=== PATIENT | male | born 1975 | race Caucasian/White ===

== ENCOUNTER 2020-12-28 05:10 | Emergency (ER) | payer OTHER ==
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
[2020-12-28] MEDS ORDERED: Morphine 2 MG/ML SYRINGE IVPUSH ONE (05:31)
[2020-12-28] MEDS ORDERED: Iopamidol 755 Mg/ML 100 ML Bottle IV ONE (05:42)
[2020-12-28] MEDS: Sodium Chloride 0.9% 10 ML Syringe FLUSH PRN ×3 (05:48→07:17)
[2020-12-28] MEDS ORDERED: Ketorolac 30 MG/ML SDV IVPUSH ONE (07:03)
== END 2020-12-28 08:25 | disposition home or self-care (01) ==
LOC: FB.ED 05:10
DX: S16.1XXA Strain of muscle, fascia and tendon at neck level, initial encounter (principal); S39.012A Strain of muscle, fascia and tendon of lower back, initial encounter; F11.20 Opioid dependence, uncomplicated; Z79.82 Long term (current) use of aspirin; Z79.899 Other long term (current) drug therapy; V49.9XXA Car occupant (driver) (passenger) injured in unspecified traffic accident, initial encounter
CPT/HCPCS: 36415; 70450; 71260; 72125; 72128; 72131; 74177; 80053; 80305-QW; 80307; 81001; 82150; 83690; 85025; 85610; 85730; 96374; 96375; 99284; 99285-25; J1885; J2270; Q9967

== ENCOUNTER 2021-11-28 21:30 | Emergency (ER) | payer OTHER ==
[2021-11-28] MEDS ORDERED: Ketorolac 30 MG/ML SDV IM ONE (21:55)
== END 2021-11-28 23:25 | disposition home or self-care (01) ==
LOC: FB.ED 21:30
DX: S83.92XA Sprain of unspecified site of left knee, initial encounter (principal); M70.42 Prepatellar bursitis, left knee; I10 Essential (primary) hypertension; F17.200 Nicotine dependence, unspecified, uncomplicated; Z79.899 Other long term (current) drug therapy; Z79.82 Long term (current) use of aspirin
CPT/HCPCS: 36415; 73562-LT; 85025; 86140; 96372; 99283-25; J1885

== ENCOUNTER 2023-02-26 16:24 | Emergency (ER) | payer OTHER ==
[2023-02-26] MEDS ORDERED: Ondansetron 4 MG Tab.DIS PO ONE (17:01)
[2023-02-26] MEDS ORDERED: HYDROmorphone 2 MG/ML SDV IM ONE (17:01)
== END 2023-02-26 17:53 ==
LOC: FB.ED 16:24
DX: M79.89 Other specified soft tissue disorders (principal); M79.605 Pain in left leg; I10 Essential (primary) hypertension; Z91.09 Other allergy status, other than to drugs and biological substances; Z79.82 Long term (current) use of aspirin; Z87.891 Personal history of nicotine dependence
CPT/HCPCS: 96372; 99283; 99285; J1170; Q0162

== ENCOUNTER 2023-09-18 18:17 | Emergency (ER) | payer OTHER ==
[2023-09-18 19:20] LABS: BILIRUBIN,URINE NEGATIVE (NEGATIVE); GLUCOSE,URINE NORMAL (NORMAL); KETONES,URINE NEGATIVE (NEGATIVE); LEUKOCYTE ESTERASE,URINE NEGATIVE (NEGATIVE); NITRITE,URINE NEGATIVE (NEGATIVE); OCCULT BLOOD,URINE NEGATIVE (NEGATIVE); PROTEIN,URINE NEGATIVE (NEGATIVE); UROBILINOGEN,URINE NORMAL (NEGATIVE)
[2023-09-18 19:20] LABS: BASOPHILS PERCENT AUTO 0.6 % (0.3-3.8); EOSINOPHILS ABSOLUTE AUTO 0.2 x10-3/uL (0.0-0.6); EOSINOPHILS PERCENT AUTO 3.3 % (0.1-6.8); HEMATOCRIT 45.7 % (38.3-50.1); HEMOGLOBIN 15.7 g/dL (12.9-17.7); LYMPHOCYTES ABSOLUTE AUTO 1.8 x10-3/uL (0.5-4.5); LYMPHOCYTES PERCENT AUTO 32.2 % (15.8-45.3); MEAN CORPUSCULAR HGB CONC 34.4 g/dL (28.7-35.3); MEAN PLATELET VOLUME 6.6 fL (6.7-11.0); MONOCYTES ABSOLUTE AUTO 0.4 x10-3/uL (0.0-1.2); MONOCYTES PERCENT AUTO 6.6 % (5.5-15.2); NEUTROPHILS ABSOLUTE AUTO 3.3 x10-3/uL (1.7-6.9); NEUTROPHILS PERCENT AUTO 57.3 % (40.3-71.8); PLATELET COUNT,PLT 241 x10(3)uL (117-477); RED BLOOD CELL COUNT 5.07 x10(6)uL (3.90-5.90); RED CELL DISTRIBUTION WIDTH 13.7 % (12.4-15.0); WHITE BLOOD CELL COUNT,WBC 5.7 x10-3/uL (3.2-10.1)
[2023-09-18 19:22] LABS: BLOOD UREA NITROGEN,BUN 14 mg/dL (7-18); BUN/CREATININE RATIO 17.5 (9-20); CALCIUM 9.3 mg/dL (8.6-10.2); CARBON DIOXIDE,CO2 28 mmol/L (21-32); CHLORIDE,CL 103 mmol/L (100-110); CREATININE 0.8 mg/dL (0.70-1.30); EST CRCL DRUG DOSING (CG) 121.58 mL/min; ESTIMATED GFR 110 mL/min (>60); GLUCOSE RANDOM 108 mg/dL (80-116); SODIUM,NA 138 mmol/L (135-145)
[2023-09-18 19:25] LABS: APPEARANCE,URINE CLEAR (CLEAR); BACTERIA,URINE RARE (NS); COLOR,URINE YELLOW (YELLOW); RBC,URINE NOT SEEN (0-5); SQUAMOUS EPITHELIAL CELLS,UR RARE (NS,R,O); WBC,URINE 0-5 (0-5)
[2023-09-18 19:26] LABS: AMPHETAMINES SCREEN, URINE NEGATIVE (NEGATIVE); BARBITURATE SCREEN,URINE NEGATIVE (NEGATIVE); BENZODIAZEPINES SCREEN,URINE NEGATIVE (NEGATIVE); BUPRENORPHINE SCREEN,URINE NEGATIVE (NEGATIVE); METHADONE SCREEN, URINE NEGATIVE (NEGATIVE); METHAMPHETAMINE SCREEN, URINE NEGATIVE (NEGATIVE); OXYCODONE SCREEN,URINE NEGATIVE (NEGATIVE); THC SCREEN,URINE POSITIVE (NEGATIVE)
[2023-09-18 19:28] LABS: ALANINE AMINOTRANSFERASE,ALT 30 U/L (12-36); ALBUMIN 3.7 g/dL (3.5-5.2); ALKALINE PHOSPHATASE 78 IU/L (56-112); ASPARTATE AMNIOTRANSFERASE,AST 14 IU/L (5-25); BILIRUBIN TOTAL 0.5 mg/dL (0.1-1.3); PROTEIN TOTAL,TP 7.3 g/dL (6.0-8.0)
[2023-09-18 19:41] LABS: SEDIMENTATION RATE MANUAL 1 mm/hr (0-15)
[2023-09-18] MEDS: predniSONE 20 MG Tab PO ONE (20:05)
== END 2023-09-18 20:10 | disposition home or self-care (01) ==
LOC: FB.ED 18:17
DX: M25.531 Pain in right wrist (principal); M25.532 Pain in left wrist; M25.511 Pain in right shoulder; M25.512 Pain in left shoulder; M79.645 Pain in left finger(s); M79.644 Pain in right finger(s); F19.10 Other psychoactive substance abuse, uncomplicated; I10 Essential (primary) hypertension; Z91.048 Other nonmedicinal substance allergy status; Z79.899 Other long term (current) drug therapy; Z90.49 Acquired absence of other specified parts of digestive tract; F17.290 Nicotine dependence, other tobacco product, uncomplicated
CPT/HCPCS: 36415; 80053; 80307; 81001; 83735; 85025; 85651; 86140; 99283; J7512

== ENCOUNTER 2024-01-26 19:07 | Emergency (ER) | payer OTHER ==
[2024-01-26] MEDS ORDERED: Acetaminophen/HYDROcodone 325-5 MG Tab PO ONE (19:08)
== END 2024-01-26 20:25 | disposition home or self-care (01) ==
LOC: FB.ED 19:07
DX: G89.29 Other chronic pain (principal); M25.511 Pain in right shoulder; M25.512 Pain in left shoulder; M54.50 Low back pain, unspecified; I10 Essential (primary) hypertension; Z91.048 Other nonmedicinal substance allergy status; Z79.899 Other long term (current) drug therapy; Z90.49 Acquired absence of other specified parts of digestive tract
CPT/HCPCS: 99283; A9270-GY

== ENCOUNTER 2024-10-02 13:19 | Emergency (ER) | payer OTHER | END 2024-10-02 13:55 | disposition home or self-care (01) | LOC: FB.ED 13:19 | DX: L03.114 Cellulitis of left upper limb (principal); G56.02 Carpal tunnel syndrome, left upper limb; I10 Essential (primary) hypertension; Z79.899 Other long term (current) drug therapy; Z91.09 Other allergy status, other than to drugs and biological substances | CPT/HCPCS: 99283 ==

== ENCOUNTER 2024-10-13 18:24 | Emergency (ER) | payer OTHER ==
[2024-10-13] MEDS: LORazepam 2 MG/ML SDV IVPUSH ONE (18:52)
[2024-10-13] MEDS: Ketorolac 15 MG/ML SDV IVPUSH ONE (18:52)
[2024-10-13 18:55] LABS: BASOPHILS PERCENT AUTO 0.8 % (0.3-3.8); EOSINOPHILS ABSOLUTE AUTO 0.1 x10-3/uL (0.0-0.6); EOSINOPHILS PERCENT AUTO 1.7 % (0.1-6.8); HEMATOCRIT 47.4 % (38.3-50.1); HEMOGLOBIN 16.3 g/dL (12.9-17.7); LYMPHOCYTES ABSOLUTE AUTO 2.1 x10-3/uL (0.5-4.5); LYMPHOCYTES PERCENT AUTO 41.7 % (15.8-45.3); MEAN CORPUSCULAR HEMOGLOBIN 31.4 pg (27.0-33.3); MEAN CORPUSCULAR HGB CONC 34.5 g/dL (28.7-35.3); MEAN CORPUSCULAR VOLUME 91.1 fL (80.8-98.7); MEAN PLATELET VOLUME 6.8 fL (6.7-11.0); MONOCYTES ABSOLUTE AUTO 0.3 x10-3/uL (0.0-1.2); MONOCYTES PERCENT AUTO 6.9 % (5.5-15.2); NEUTROPHILS ABSOLUTE AUTO 2.4 x10-3/uL (1.7-6.9); NEUTROPHILS PERCENT AUTO 48.9 % (40.3-71.8); PLATELET COUNT,PLT 235 x10(3)uL (117-477); RED CELL DISTRIBUTION WIDTH 14.8 % (12.4-15.0)
[2024-10-13 19:05] LABS: BLOOD UREA NITROGEN,BUN 5 mg/dL (7-18); BUN/CREATININE RATIO 5.6 (9-20); CALCIUM 8.9 mg/dL (8.6-10.2); CARBON DIOXIDE,CO2 25 mmol/L (21-32); CHLORIDE,CL 108 mmol/L (100-110); CREATININE 0.9 mg/dL (0.70-1.30); ESTIMATED GFR 105 mL/min (>60); GLUCOSE RANDOM 92 mg/dL (80-116); POTASSIUM,K 3.8 mmol/L (3.5-5.3); SODIUM,NA 145 mmol/L (135-145)
[2024-10-13 19:11] LABS: A/G RATIO 1.2; ALANINE AMINOTRANSFERASE,ALT 37 U/L (12-36); ALBUMIN 3.8 g/dL (3.5-5.2); ALKALINE PHOSPHATASE 79 IU/L (56-112); ASPARTATE AMNIOTRANSFERASE,AST 26 IU/L (5-25); BILIRUBIN TOTAL 0.4 mg/dL (0.1-1.3); PROTEIN TOTAL,TP 7.1 g/dL (6.0-8.0)
[2024-10-13] MEDS: Iopamidol 755 Mg/ML 100 ML Bottle IV ONE (20:37)
== END 2024-10-13 22:03 | disposition home or self-care (01) ==
LOC: FB.ED 18:24
DX: I25.10 Atherosclerotic heart disease of native coronary artery without angina pectoris (principal); R74.01 Elevation of levels of liver transaminase levels; I10 Essential (primary) hypertension; Z79.899 Other long term (current) drug therapy; Z91.09 Other allergy status, other than to drugs and biological substances
CPT/HCPCS: 36415; 71275; 80053; 84484; 85025; 85379; 93005; 93010; 96374; 96375; 99284; 99285-25; J1885; J2060; Q9967

== ENCOUNTER 2025-02-21 11:47 | Emergency (ER) | payer OTHER | END 2025-02-21 12:30 | disposition home or self-care (01) | LOC: FB.ED 11:47 | DX: T81.31XA Disruption of external operation (surgical) wound, not elsewhere classified, initial encounter (principal); I10 Essential (primary) hypertension; Z91.09 Other allergy status, other than to drugs and biological substances; Z79.899 Other long term (current) drug therapy | CPT/HCPCS: 99283 ==